=== PATIENT | male | born 1990 | race Two or more races ===

== ENCOUNTER 2022-03-22 16:14 | Emergency (ER) | payer SELFPAY ==
[~2022-03-22] VITALS: Ht 177.8 cm; Wt 84.1 kg
[2022-03-22 16:16] VITALS: BP 132/89
== END 2022-03-22 19:26 | disposition left against medical advice (07) ==
LOC: M ED 16:14
DX: Z53.21 Procedure and treatment not carried out due to patient leaving prior to being seen by health care provider (principal)

== ENCOUNTER 2022-03-27 17:56 | Emergency (ER) | payer OTHER, SELFPAY ==
[~2022-03-27] VITALS: Ht 177.8 cm; Wt 83.6 kg
[2022-03-27 20:19] LABS: BASO # 0.1 10^3/uL (0.0-0.2); BASO % 1.1 % (0.0-1.0); EOS # 0.2 10^3/uL (0.0-0.5); EOS % 3.4 % (0.0-3.0); HEMATOCRIT 43.8 % (42.0-52.0); HEMOGLOBIN 14.6 g/dl (13.5-17.5); LYMPH # 1.4 10^3/uL (1.5-5.0); LYMPH % 25.9 % (24.0-44.0); MEAN CORPUSCULAR HEMOGLOBIN 29.6 pg (27.0-33.0); MEAN CORPUSCULAR HGB CONC 33.3 g/dl (32.0-36.5); MEAN CORPUSCULAR VOLUME 88.8 fl (80.0-96.0); MONO # 0.4 10^3/uL (0.0-0.8); MONO % 7.2 % (2.0-8.0); NEUTROPHILS # 3.5 10^3/uL (1.5-8.5); PLATELET COUNT, AUTOMATED 253 10^3/uL (150-450); RED BLOOD COUNT 4.93 10^6/uL (4.30-6.10); WHITE BLOOD COUNT 5.6 10^3/uL (4.0-10.0)
[2022-03-27 20:50] LABS: BLOOD UREA NITROGEN 18 MG/DL (7-18); CALCIUM LEVEL 9.3 MG/DL (8.5-10.1); CARBON DIOXIDE LEVEL 32 MEQ/L (21-32); CHLORIDE LEVEL 104 MEQ/L (98-107); CREATININE FOR GFR 1.23 MG/DL (0.70-1.30); GLOMERULAR FILTRATION RATE > 60.0 (>60); GLUCOSE, FASTING 113 MG/DL (70-100); SODIUM LEVEL 140 MEQ/L (136-145)
[2022-03-27] MEDS ORDERED: ACETAMINOPHEN 500 MG TAB PO ONE (23:15)
[2022-03-27] MEDS ORDERED: NAPROXEN 250 MG TAB PO ONE (23:15)
[2022-03-28 00:03] VITALS: BP 128/78
== END 2022-03-28 00:04 | disposition home or self-care (01) ==
LOC: M ED 17:56
DX: R51.9 Headache, unspecified (principal); R20.2 Paresthesia of skin; H53.8 Other visual disturbances; W19.XXXA Unspecified fall, initial encounter; R00.1 Bradycardia, unspecified